=== PATIENT | male | born 1945 ===

== ENCOUNTER 2019-01-24 09:43 | Outpatient (CLI) | payer OTHER | END 2019-01-24 10:06 | disposition home or self-care (01) | LOC: TOM 09:43 → EDBD 09:43 → TOM 10:06 | DX: N20.0 Calculus of kidney (principal); N30.00 Acute cystitis without hematuria ==

== ENCOUNTER 2023-04-21 11:30 | Inpatient (IN) | payer OTHER ==
[~2023-04-21] VITALS: Ht 162.6 cm; Wt 72.6 kg
[2023-04-21] MEDS ORDERED: LANTUS SOL100 UNIT/1 (14:09)
[2023-04-21] MEDS ORDERED: CARV PO (14:09)
[2023-04-21] MEDS ORDERED: LIPITOR20 MG PO (14:10)
[2023-04-21] MEDS ORDERED: PLAVIX75 MG PO (14:10)
[2023-04-21] MEDS ORDERED: IRBESARTAN-HCT1 EACH PO (14:10)
[2023-04-21] MEDS ORDERED: FUSION PLUS CA1 EACH PO (14:11)
[2023-04-21] MEDS ORDERED: [UNRECOGNIZED DRUG - OTHER] PO (14:12)
[2023-04-21] MEDS ORDERED: LAX PO (14:13)
[2023-04-26] MEDS ORDERED: TRADJENTA5 MG (10:20)
[2023-04-26] MEDS ORDERED: CARVEDILOL25 M1 (10:20)
== END 2023-05-02 10:14 | disposition home or self-care (01) | DRG 330 ==
LOC: SURG 04-26 07:00 → O/R 04-26 07:53 → SURG 04-26 11:30 → SURH 04-30 15:30
PROVIDERS: ADMIT Colon & Rectal Surgery; ATTEND Colon & Rectal Surgery
PROC: 07BB4ZZ Excision of Mesenteric Lymphatic, Percutaneous Endoscopic Approach (ICD-10-PCS; 2023-04-26)
PROC: 0WQF4ZZ Repair Abdominal Wall, Percutaneous Endoscopic Approach (ICD-10-PCS; 2023-04-26)
PROC: 0DTF4ZZ Resection of Right Large Intestine, Percutaneous Endoscopic Approach (ICD-10-PCS; principal; 2023-04-26 07:00)
PROC: BW21YZZ Computerized Tomography (CT Scan) of Abdomen and Pelvis using Other Contrast (ICD-10-PCS; 2023-04-29)
DX: C18.3 Malignant neoplasm of hepatic flexure (principal); K56.7 Ileus, unspecified; K91.89 Other postprocedural complications and disorders of digestive system; R59.0 Localized enlarged lymph nodes; K43.9 Ventral hernia without obstruction or gangrene; E86.0 Dehydration; Z20.822 Contact with and (suspected) exposure to COVID-19